=== PATIENT | female | born 1940 | race Caucasian/White ===

== ENCOUNTER 2017-02-16 13:05 | Inpatient (IN) | payer MEDICARE, OTHER ==
[~2017-02-16] VITALS: Ht 157.5 cm; Wt 52.6 kg
[2017-02-16 15:25] LABS: ASPARTATE AMINO TRANSFERASE 19 U/L (15-37); BLOOD UREA NITROGEN 17 mg/dL (7-18)
[2017-02-16 15:30] LABS: IS PT STATUS REG ER OR PRE ER? YES
[2017-02-16 18:37] VITALS: BP 225/90
[2017-02-16] MEDS ORDERED: ACETAMINOPHEN 325 MG TABLET PO PRN (19:00)
[2017-02-16] MEDS ORDERED: LABETALOL 5MG/ML, 20ML IVPush PRN (19:00)
[2017-02-16] MEDS ORDERED: ENALAPRILAT 1.25 MG/ML, 2ML IV PRN (19:00)
[2017-02-16 19:53] VITALS: BP 217/98
[2017-02-16 20:37] VITALS: BP 187/80
[2017-02-16 21:51] VITALS: BP 164/79
[2017-02-16 23:03] VITALS: BP 191/70
[2017-02-16 23:29] LABS: IS PT STATUS REG ER OR PRE ER? NO
[2017-02-16 23:30] VITALS: BP 195/81
[2017-02-17] VITALS (9 sets, daily range): BP systolic 122–209; BP diastolic 60–85
[2017-02-17] MEDS ORDERED: hydrALAzine 20 MG/ML, 1ML IV PRN (00:30)
[2017-02-17] MEDS: TRAZODONE 50MG TABLET PO SCH ×2 (04:38→20:54)
[2017-02-17 05:23] LABS: HEMOGLOBIN 11.5 g/dL (11.7-16.4)
[2017-02-17 05:26] LABS: IS PT STATUS REG ER OR PRE ER? NO
[2017-02-17 05:29] LABS: BLOOD UREA NITROGEN 15 mg/dL (7-18)
[2017-02-17] MEDS ORDERED: POTASSIUM CHLORIDE 10% 40 MEQ/30 ML UDC PO ONE (12:30)
[2017-02-17] MEDS ORDERED: LORazepam 2 MG/ML, 1ML IVPush ONE ×2 (12:30)
[2017-02-17] MEDS ORDERED: PANT40TA3 PO (13:59)
[2017-02-17] MEDS ORDERED: DOXA4TAB3 PO (13:59)
[2017-02-17] MEDS ORDERED: CLOP75TA PO (13:59)
[2017-02-17] MEDS ORDERED: BENA20TA2 PO (13:59)
[2017-02-17] MEDS ORDERED: ASPI-496 PO (13:59)
[2017-02-17] MEDS ORDERED: iron PO (13:59)
[2017-02-17] MEDS ORDERED: ROSU20TA PO (13:59)
[2017-02-17] MEDS ORDERED: EZET10TA3 PO (13:59)
[2017-02-17] MEDS ORDERED: L.AC1CAP6 PO (13:59)
[2017-02-17] MEDS: FERROUS SULFATE 325 MG TABLET PO SCH ×2 (16:30→20:54)
[2017-02-17] MEDS: ENOXAPARIN 40 MG/0.4 ML SQ SCH (17:39)
[2017-02-17] MEDS: ATORVASTATIN 40 MG TABLET PO SCH (20:54)
[2017-02-17] MEDS: DOXAZOSIN 2MG TABLET PO SCH (20:54)
[2017-02-17] MEDS: PANTOPROZOLE 40MG TABLET PO SCH (20:55)
[2017-02-17] MEDS ORDERED: TRAZODONE 50MG TABLET PO SCH (21:00)
[2017-02-18 00:14] VITALS: BP 126/65
[2017-02-18 04:29] VITALS: BP 150/64
[2017-02-18 07:38] VITALS: BP 113/70
[2017-02-18] MEDS: BENAZEPRIL 20 MG TABLET PO SCH (09:00)
[2017-02-18] MEDS ORDERED: AMLODIPINE 5 MG TABLET PO SCH (09:00)
[2017-02-18] MEDS: CLOPIDOGREL 75 MG TABLET PO SCH (09:10)
[2017-02-18] MEDS: EZETIMIBE 10 MG TABLET PO SCH (09:10)
[2017-02-18] MEDS: ASPIRIN 81 MG TABLET EC PO SCH (09:10)
[2017-02-18] MEDS: LACTOBACILLUS CHEW TABLET PO SCH (09:10)
[2017-02-18 13:22] VITALS: BP 129/70
[2017-02-18] MEDS: ENOXAPARIN 40 MG/0.4 ML SQ SCH (16:31)
[2017-02-18 22:40] VITALS: BP 192/82
[2017-02-18] MEDS: FERROUS SULFATE 325 MG TABLET PO SCH (22:43)
[2017-02-18] MEDS: TRAZODONE 50MG TABLET PO SCH (22:43)
[2017-02-18] MEDS: PANTOPROZOLE 40MG TABLET PO SCH (22:43)
[2017-02-18] MEDS: ATORVASTATIN 40 MG TABLET PO SCH (22:43)
[2017-02-18] MEDS: DOXAZOSIN 2MG TABLET PO SCH (22:43)
[2017-02-18 23:49] VITALS: BP 143/71
[2017-02-19 03:34] VITALS: BP 164/75
[2017-02-19 08:22] VITALS: BP 184/76
[2017-02-19] MEDS: BENAZEPRIL 20 MG TABLET PO SCH (09:00)
[2017-02-19] MEDS: CLOPIDOGREL 75 MG TABLET PO SCH (09:14)
[2017-02-19] MEDS: ASPIRIN 81 MG TABLET EC PO SCH (09:14)
[2017-02-19] MEDS: EZETIMIBE 10 MG TABLET PO SCH (09:14)
[2017-02-19] MEDS: LACTOBACILLUS CHEW TABLET PO SCH (09:14)
[2017-02-19] MEDS ORDERED: SULF1TAB24 PO (09:38)
[2017-02-19] MEDS ORDERED: SULFAMETH./TRIMETHOPRIM DS 800MG/160MG TABLET PO SCH (10:00)
[2017-02-19 11:45] VITALS: BP 177/69
== END 2017-02-19 14:00 | DRG 305 ==
LOC: ED 15:00 → EDIP 16:26 → UNDODISIN 18:13 → 4EST 18:18 → 4WST 02-17 19:46
PROC: 0T9B70Z Drainage of Bladder with Drainage Device, Via Natural or Artificial Opening (ICD-10-PCS; principal; 2017-02-16)
DX: I16.0 Hypertensive urgency (principal); N39.0 Urinary tract infection, site not specified; H53.2 Diplopia; M54.2 Cervicalgia; R07.9 Chest pain, unspecified; G30.9 Alzheimer's disease, unspecified; I10 Essential (primary) hypertension; F32.9 Major depressive disorder, single episode, unspecified; E87.6 Hypokalemia; Z66 Do not resuscitate; F02.80 Dementia in other diseases classified elsewhere, unspecified severity, without behavioral disturbance, psychotic disturbance, mood disturbance, and anxiety; E78.5 Hyperlipidemia, unspecified; Z87.891 Personal history of nicotine dependence
CPT/HCPCS: 36415; 70450; 70553; 71010; 80048; 80053; 81001; 83605; 84443; 84484; 85025; 87086; 93005; 93306; 93880; J1650; J0360